=== PATIENT | male | born 1990 | race Caucasian/White ===

== ENCOUNTER 2017-03-21 01:19 | Emergency (ER) | payer OTHER ==
--- NOTE | ~2017-03-21 | CR141 ---
[facility]. [facility] A Service of [facility] & [facility] RADIOLOGY TEXT RESULTS PATIENT: JERMAIN VILLEDA LOCATION: SED : [birth year] UNIT #: [id number] AGE: [address]: Morgan Meyer MD SEX: M ORDER DR: [id number] [place] [id number] MR#: [id number] Acc #: [id number] NAME: JERMAIN VILLEDA : 1990 SEX: M STUDY DATE/TIME: 03/21/2017 2:42 UNIT: SED ROOM: STUDY DESCRIPTION: CR Hand Min 3 Views Lt Attending Physician: Morgan Meyer M.D. Ordering Physician: Morgan Meyer M.D. Primary Care Physician: No Primary Care Physician MEDICAL IMAGING REPORT This report is preliminary unless electronic signature is present. EXAM Left hand series, 03/21/2017. HISTORY 26-year-old male in the ED complaining of hand pain after injury. Object fell on hand at 8:00 p.m. last evening. TECHNIQUE Three-view left hand series. FINDINGS No fracture, dislocation, or other acute osseous abnormality is demonstrated. IMPRESSION Negative left hand series. Dictated by... Khari Avendaño M.D. THIS IS AN ELECTRONICALLY VERIFIED REPORT Khari Avendaño M.D. at 03/21/2017 9:56 PM ALMAW/brodie TD: 03/21/2017 11:40 JOB #: [id number] MEDICAL IMAGING REPORT Page 1 of 1
[~2017-03-21 01:19] MED LIST: AFRIN3 ML INH; AMOXICILLIN PO; ATIVAN PO; BROMPHED DM PO; DICLOFENAC PO; FAMOTIDINE PO; IBUPROFEN PO; LORATADINE PO; NAPROSYN500 MG PO; NO MEDICATIONS; PHENERGAN25 M1 PO; TYLOX 5/500 CAP1 CAP PO; VIBRAMYCIN100 M1 PO; VOLTAREN75 MG PO
[2017-03-21] MEDS ORDERED: NO MEDICATIONS (01:58)
== END 2017-03-21 03:36 | disposition home or self-care (01) ==
LOC: SED 01:19
DX: S60.222A Contusion of left hand, initial encounter (principal); J45.909 Unspecified asthma, uncomplicated; F17.200 Nicotine dependence, unspecified, uncomplicated; Z79.01 Long term (current) use of anticoagulants; W20.8XXA Other cause of strike by thrown, projected or falling object, initial encounter; Y92.9 Unspecified place or not applicable
CPT/HCPCS: 73130; 99283